=== PATIENT | male | born 1955 | race Caucasian/White ===

== ENCOUNTER 2017-02-25 11:22 | Emergency (ER) | payer OTHER ==
[~2017-02-25] VITALS: Ht 188 cm; Wt 103.5 kg
[~2017-02-25 11:22] MED LIST: ALPR0.5T99 PO; XANA0.5T PO; ZOLP10TA3 PO
[2017-02-25 11:24] VITALS: BP 127/76; PULSE 101; RESP 18; TEMP 98.3; O2SAT 93
[2017-02-25] MEDS ORDERED: ALPR.5 PO (11:34)
[2017-02-25] MEDS ORDERED: AMBI10TA PO (11:34)
--- NOTE | 2017-02-25 11:36 | PD ---
HPI Chief Complaint: Alcohol/Drug Intoxication Time Seen by Provider: 11:24 Travel History International Travel<30 days: No Contact w/Intl Traveler<30days: No Traveled to known affect area: No History of Present Illness HPI The patient is a 61-year-old male who presents emergency department via EMS for alcohol intoxication. According to EMS fire rescue was called to the scene and the police were called to scene and did not feel the patient can be left at home as he appeared intoxicated. The patient states he had 2 small bottles of wine strength earlier today, denies significant intoxication. The patient states he was in his driveway when he saw a suspicious vein in the [place], thought he was going to get robbed. The patient thinks that whenever was sitting in a van called the police and fire rescue on him. He states he is a good emily but is not well like to the neighborhood. He denies any current physical complaints. He does admit to drinking alcohol. He denies any illicit drug use. PFSH Past Medical History Anxiety: Yes Hypertension: Yes (BORDERLINE) Immunizations Current: Yes ?: Not Past Surgical History Eye Surgery: Yes (LASIK) Thoracic Surgery: Yes (BACK SURGERY X 2 ) Social History Alcohol Use: Yes (1 GLASS VODKA DAILY) Tobacco Use: No Substance Use: No Allergies-Medications (Allergen,Severity, Reaction): Coded Allergies: No Known Allergies (Verified , 01/07/16) Reported Meds & Prescriptions Reported Meds & Active Scripts Active Reported Ambien (Zolpidem Tartrate) 10 Mg Tab 10 Mg PO HS PRN Xanax (Alprazolam) 0.5 Mg Tab 0.5 Mg PO Q6H PRN Review of Systems Except as stated in HPI: all other systems reviewed are Neg Psychiatric: Positive: Substance Abuse (alcohol ingestion) Physical Exam Narrative GENERAL: Awake, alert, pleasant 61-year-old male who appears his stated age and is in no acute respiratory distress. Appears slightly intoxicated. SKIN: Focused skin assessment warm/dry. HEAD: Atraumatic. Normocephalic. EYES: Pupils equal and round. Mild injection. ENT: No nasal bleeding or discharge. Mucous membranes pink and moist. NECK: Trachea midline. No JVD. CARDIOVASCULAR: Regular, tachycardic with a heart rate of 105. RESPIRATORY: No accessory muscle use. Clear to auscultation. Breath sounds equal bilaterally. GASTROINTESTINAL: Abdomen soft, non-tender, nondistended. No rebound tenderness. MUSCULOSKELETAL: No obvious deformities. No clubbing. No cyanosis. No edema. NEUROLOGICAL: Awake and alert. No obvious cranial nerve deficits. Motor grossly within normal limits. Normal speech. Oriented to person, place, month, and year. PSYCHIATRIC: Appears slightly intoxicated. Insight and judgment appear normal. Data Data Last Documented VS Vital Signs Date Time Temp Pulse Resp B/P Pulse Ox O2 Delivery O2 Flow Rate FiO2 02/25/17 11:24 98.3 101 18 127/76 93 Orders Basic Metabolic Panel (Bmp) (02/25/17 11:33) Alcohol (Ethanol) (02/25/17 11:33) Labs Laboratory Tests Test 02/25/17 11:49 Sodium Level 142 MEQ/L Potassium Level 4.0 MEQ/L Chloride Level 104 MEQ/L Carbon Dioxide Level 29.5 MEQ/L Anion Gap 9 MEQ/L Blood Urea Nitrogen 9 MG/DL Creatinine 1.00 MG/DL Estimat Glomerular Filtration 76 ML/MIN Rate Random Glucose 110 MG/DL Calcium Level 8.8 MG/DL Ethyl Alcohol Level 308 MG/DL MDM Medical Decision Making Medical Screen Exam Complete: Yes Emergency Medical Condition: Yes Medical Record Reviewed: Yes Interpretation(s) Laboratory Tests Test 02/25/17 11:49 Sodium Level 142 MEQ/L Potassium Level 4.0 MEQ/L Chloride Level 104 MEQ/L Carbon Dioxide Level 29.5 MEQ/L Anion Gap 9 MEQ/L Blood Urea Nitrogen 9 MG/DL Creatinine 1.00 MG/DL Estimat Glomerular Filtration 76 ML/MIN Rate Random Glucose 110 MG/DL Calcium Level 8.8 MG/DL Ethyl Alcohol Level 308 MG/DL Differential Diagnosis Differential diagnosis includes alcohol ingestion, alcohol intoxication, substance ingestion, hyponatremia, dehydration. Narrative Course Alcohol level and BMP were sent to lab. Sodium level is normal. Alcohol level is elevated at 308. Patient will be evaluated in the emergency department a monitor, when she is able to and bleed has a safe ride home, patient will be discharged. Diagnosis Primary Impression: Alcohol intoxication Qualified Code: F10.920 - Alcohol intoxication, uncomplicated Patient Instructions: General Instructions Additional Instructions: Decrease alcohol intake. Follow-up with her primary physician. Return if symptoms worsen or progress. Med/Other Pt SpecificInfo: No Change to Meds Disposition: DISCHARGE HOME Condition: Stable Marcello Miles MD Feb 25, 2017 11:36
[2017-02-25 12:07] LABS: BICARBONATE 29.5 MEQ/L (21.0-32.0)
[2017-02-25 13:06] VITALS: BP 129/70; PULSE 88; RESP 16; O2SAT 97
== END 2017-02-25 14:23 | disposition home or self-care (01) ==
LOC: PHED 11:22 → PHEFT 14:23
DX: F10.120 Alcohol abuse with intoxication, uncomplicated (principal); Y90.8 Blood alcohol level of 240 mg/100 ml or more
CPT/HCPCS: 80048; 80307; 99282